=== PATIENT | female | born 1995 | race Caucasian/White ===

== ENCOUNTER 2016-12-04 14:16 | Emergency (ER) | payer OTHER ==
[~2016-12-04 14:16] MED LIST: PROPARACAINE 0.5% OPHTH DROPS 15 ML BTL ONE
[2016-12-04 14:28] VITALS: BP 137/62; PULSE 69; RESP 18; TEMP 98.4
[2016-12-04] MEDS ORDERED: PROPARACAINE 0.5% OPHTH DROPS 15 ML BTL RIGHT EYE SCH (14:30)
--- NOTE | 2016-12-04 14:45 | ED ---
Eye Problem HPI - General Chief complaint: Eye Problems Stated complaint: [facility] chemical splash rt eye Time Seen by Provider: 12/04/16 14:28 Source: patient, RN notes reviewed, old records reviewed Mode of arrival: ambulatory Limitations: no limitations - History of Present Illness Initial comments: This is a 21-year-old female presenting to the emergency department chief complaint of a chemical burn to right eye. 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 She states that she did flush it and felt a little bit better but now is continuing to burn. Patient states that she wears glasses. She does not wear contacts. She states that her vision of the same. She states that she's had no previous problems with her eyes. She reports that her vision is unchanged. Patient states that the burning sensation. She denies any fever or chills, headache, shortness of breath, chest pain, nausea or vomiting. - Related Data Home Medications Medication Instructions Recorded Confirmed No Known Home Medications [No 12/04/16 12/04/16 Known Home Medications] Allergies Allergy/AdvReac Type Severity Reaction Status Date / Time No Known Allergies Allergy Verified 12/04/16 14:26 Review of Systems ROS Statement: Those systems with pertinent positive or pertinent negative responses have been documented in the HPI. ROS Other: All systems not noted in ROS Statement are negative. Past Medical History Past Medical History: No Reported History History of Any Multi-Drug Resistant Organisms: None Reported Past Surgical History: Tonsillectomy Past Psychological History: No Psychological Hx Reported Smoking Status: Never smoker Past Alcohol Use History: None Reported Past Drug Use History: None Reported General Exam - General Exam Comments Initial Comments: Well-appearing 21-year-old female. No distress. Limitations: no limitations General appearance: alert Head exam: Present: atraumatic, normocephalic, normal inspection Eye exam: Present: normal appearance, PERRL, EOMI, conjunctival injection ( Right eye conjunctival injection.), other (PH of the right eye is 7.). Absent: scleral icterus, periorbital swelling ENT exam: Present: normal exam, normal oropharynx, mucous membranes moist Neck exam: Present: normal inspection. Absent: tenderness, meningismus, lymphadenopathy Respiratory exam: Present: normal lung sounds bilaterally. Absent: respiratory distress, wheezes, rales, rhonchi, stridor Cardiovascular Exam: Present: regular rate, normal rhythm, normal heart sounds. Absent: systolic murmur, diastolic murmur, rubs, gallop, clicks GI/Abdominal exam: Present: soft, normal bowel sounds. Absent: distended, tenderness, guarding, rebound, rigid Extremities exam: Present: normal inspection, full ROM, normal capillary refill. Absent: tenderness, pedal edema, joint swelling, calf tenderness Back exam: Present: normal inspection Neurological exam: Present: alert, oriented X3, CN II-XII intact Psychiatric exam: Present: normal affect, normal mood Skin exam: Present: warm, dry, intact, normal color. Absent: rash Course Vital Signs 12/04/16 14:26 Temperature 98.4 F Pulse Rate 69 Respiratory 18 Rate Blood Pressure 137/62 O2 Sat by Pulse 98 Oximetry Medical Decision Making - Medical Decision Making Well-appearing 21-year-old female in no acute distress describes that she has had chemical splash into her right eye. Patient for scene eye exam was performed. Just diffuse uptake no evidence of corneal abrasion. Patient pH of her eye was 7 prior to Cole lens. Patient did receive a Cole lens afterward. Eye was then examined with fluorescein and does show evidence of a small abrasion at 6 oclock position from the Cole lens. Patient will be started on erythromycin eye ointment. Patient given a referral for research environmental engineer. Patient agrees to treatment plan will comply. Return parameters were discussed. Disposition Clinical Impression: Chemical injury to cornea of right eye Disposition: HOME SELF-CARE Condition: Good Instructions: Chemical Eye [place] (ED) Additional Instructions: Patient advised to apply eye ointment every 4 hours to the right eye. Follow- up with research environmental engineer if symptoms continue to persist. Return to the emergency department if any alarming signs or symptoms occur. Referrals: Fabiola Ackerman MD [Primary Care Provider] - 1-2 days Cesar Murrell MD [STAFF PHYSICIAN] - 1-2 days Time of Disposition: 14:43
[2016-12-04] MEDS ORDERED: ERYTHROMYCIN 5 MG/GM OPHTH OINT 3.5 GM TUBE RIGHT EYE SCH (16:00)
== END 2016-12-04 15:15 | disposition home or self-care (01) ==
LOC: EC 14:16
DX: T26.61XA Corrosion of cornea and conjunctival sac, right eye, initial encounter (principal); Y93.89 Activity, other specified; Y92.239 Unspecified place in hospital as the place of occurrence of the external cause
CPT/HCPCS: 99283

== ENCOUNTER 2023-08-27 09:06 | Day surgery (SDC) | payer MEDICAID ==
[~2023-08-27 09:06] MED LIST changes: +LACTATED RINGERS 1,000 ML IV SCH; +LIDOCAINE 1% (10MG/ML) FOR IV START INTRADERMA PRN; +ONDANSETRON 4 MG/2 ML VIAL IVP PRN; -PROPARACAINE 0.5% OPHTH DROPS 15 ML BTL ONE
[2023-08-27 09:58] VITALS: RESP 16; TEMP 98.2
--- NOTE | 2023-08-27 10:01 | P.GSHP ---
History of Present Illness H&P Date: 08/27/23 Chief Complaint: rectal bleeding 28-year-old female here for colonoscopy. Patient has had intermittent rectal bleeding and diarrhea for the last 3 years. No prior endoscopies. Past Medical History Past Medical History: No Reported History Additional Past Medical History / Comment(s): Chronic diarrhea for last 3 yrs. blood with wiping. History of Any Multi-Drug Resistant Organisms: None Reported Past Surgical History: Tonsillectomy Additional Past Surgical History / Comment(s): wisdom teeth removed Past Anesthesia/Blood Transfusion Reactions: No Reported Reaction Smoking Status: Never smoker - Past Family History Mother Family Medical History: Coronary Artery Disease (CAD), Deep Vein Thrombosis (DVT), Hypertension Medications and Allergies Home Medications Medication Instructions Recorded Confirmed Type Etonogestrel/Ethinyl Estradiol 1 each VG Q30D 08/21/23 08/27/23 History [Nuvaring Vaginal Ring] Ibuprofen [Motrin Ib] 200 mg PO DIRECTED PRN 08/21/23 08/21/23 History Allergies Allergy/AdvReac Type Severity Reaction Status Date / Time No Known Allergies Allergy Verified 08/27/23 09:42 Surgical - Exam Vital Signs Temp Pulse Resp BP Pulse Ox 98.2 F 101 H 16 134/87 98 08/27/23 09:56 08/27/23 09:56 08/27/23 09:56 08/27/23 09:56 08/27/23 09:56 Physical exam: General: Well-developed, well-nourished HEENT: Normocephalic, sclerae nonicteric Abdomen: Nontender, nondistended Extremities: No edema Neuro: Alert and oriented Assessment and Plan (1) Rectal bleeding Narrative/Plan: Will proceed with colonoscopy at this time. Current Visit: Yes Status: Acute Code(s): K62.5 - HEMORRHAGE OF ANUS AND RECTUM SNOMED Code(s): 27643941
[2023-08-27] MEDS ORDERED: PROPOFOL 10 MG/ML 20 ML VIAL IV ONE (10:03)
--- NOTE | 2023-08-27 10:18 | P.PCN ---
Date of Procedure: 08/27/23 Procedure(s) Performed: PREOPERATIVE DIAGNOSIS: Rectal bleeding POSTOPERATIVE DIAGNOSIS: Normal exam PROCEDURE: Colonoscopy with random biopsy ANESTHESIA: MAC SURGEON: Kiaden Aguilera M.D. SPECIMENS: Random ileum and colon biopsies ENDOSCOPIC PROCEDURE: The patient was placed on the endoscopy table in the left decubitus position. The Olympus colonoscope was inserted into the anus and passed under direct visualization to the base of the cecum. The appendiceal orifice was visualized. The ileum was inspected. Biopsies were taken. It otherwise appeared normal. From that point the scope was slowly withdrawn inspecting all surfaces carefully. There were no neoplastic inflammatory or polypoid lesions throughout the cecum, ascending, transverse, descending, sigmoid and rectum. There was no visible diverticulosis noted. Random biopsies of the colon took place. Digital rectal examination was normal. The patient was taken to the recovery room in stable condition per anesthesia guidelines. RECOMMENDATIONS: Await biopsy results. Resume diet.
[2023-08-27 10:48] VITALS: BP 106/73; PULSE 80
== END 2023-08-27 11:11 | disposition home or self-care (01) ==
LOC: ORWHC2ENDO 09:06
PROVIDERS: ATTEND Surgery
DX: K62.5 Hemorrhage of anus and rectum (principal)
CPT/HCPCS: 81025; 88305; 45380; J2704

== ENCOUNTER → 2023-10-17 | Outpatient (CLI) | payer MEDICAID ==
--- NOTE | 2023-10-17 10:00 | USB ---
Reason for Exam: Clinical finding. Indicated Problems: Lump or thickening of the right side for 1 Week(s). Patient History: Menarche at age 14. Premenopausal. Last menstrual period: 10/13/2023 Technique: Method: Targeted. Patient Position: LPO. Prior Study Comparison: No prior studies available for comparison. Findings: The upper outer quadrant of the right breast, the area of palpable concern of the right breast, the axilla of the right breast and the retroareolar of the right breast were scanned. A complete US of all four quadrants of the breast the axilla, and retro-areolar region were reviewed. No solid or cystic masses are identified. Dense tissue is present throughout. Particular attention to the palpable site tendon all the clot shows more focal dense tissue. No axillary lymphadenopathy. Overall Assessment: Benign, BI-RAD 2 Management: Screening Mammogram of both breasts at age 41. Unless there is an indication to start sooner. Additional clinical follow-up of the palpable area in the right breast. Ultrasound shows focal dense tissue here. If any enlargement the site can be rescanned. A clinical breast exam by your physician is recommended on an annual basis and results should be correlated with mammographic findings. Patient should continue monthly self breast exams. Results were given to the patient verbally at the time of exam. Electronically signed and approved by: Reema Kaba M.D. Radiologist
== END | disposition home or self-care (01) ==
LOC: RADUSWWP 09:20
PROVIDERS: ATTEND Family Medicine
DX: N63.11 Unspecified lump in the right breast, upper outer quadrant (principal); N64.4 Mastodynia

== ENCOUNTER 2024-12-15 06:05 | Inpatient (IN) | payer MEDICAID, BC ==
[2024-12-15] MEDS ORDERED: miSOPROStoL 200 MCG TAB RECTAL PRN (06:09)
[2024-12-15] MEDS ORDERED: METHYLERGONOVINE 0.2 MG/ML 1 ML AMP IM PRN (06:09)
[2024-12-15] MEDS ORDERED: miSOPROStoL 200 MCG TAB PO PRN (06:09)
[2024-12-15] MEDS ORDERED: TERBUTALINE 1 MG/ML VIAL SQ PRN (06:09)
[2024-12-15] MEDS ORDERED: CARBOPROST TROMETHAMINE 250 MCG/ML 1 ML AMP IM PRN (06:09)
[2024-12-15] MEDS ORDERED: TRANEXAMIC 1,000 MG/100ML-NACL 1,000 MG in EMPTY BAG 1 BAG IV PRN (06:09)
[2024-12-15] MEDS ORDERED: OXYTOCIN 10 UNIT/ML 1 ML VIAL IM PRN (06:09)
[2024-12-15] MEDS ORDERED: LIDOCAINE 0.5% (PF) 5 MG/ML (50 ML SDV) SQ PRN (06:09)
[2024-12-15 06:26] LABS: Glucose,Whole Blood 83 mg/dL (70-110)
[2024-12-15] MEDS: LACTATED RINGERS 1,000 ML IV SCH (06:28)
[2024-12-15] MEDS: OXYTOCIN 30 UNITS/500 ML NS 30 UNIT in SALINE 1 500ML.BAG IV SCH (06:30)
[2024-12-15 06:41] LABS: Basophils # (A) 0.02 10*3/uL (0.00-0.10); Basophils % (A) 0.3 %; Eosinophils # (A) 0.05 10*3/uL (0.04-0.35); Eosinophils % (A) 0.7 %; HCT 33.6 % (37.2-46.3); HGB 11.7 g/dL (12.0-15.0); Lymphocytes # (A) 1.86 10*3/uL (0.90-5.00); Lymphocytes % (A) 27.8 %; MCH 32.7 pg (27.0-32.0); MCHC 34.8 g/dL (32.0-37.0); MCV 93.9 fL (80.0-97.0); Mean Platelet Volume 10.9 fL (9.5-12.2); Neutrophils % (A) 61.5 %; Platelet Count 185 10*3/uL (140-440); RBC 3.58 10*6/uL (4.10-5.20); RDW 13.3 % (11.5-14.5); WBC 6.68 10*3/uL (4.50-10.00)
--- NOTE | 2024-12-15 08:50 | P.HPOB ---
History of Present Illness H&P Date: 12/15/24 Chief Complaint: IUP at 39-3/7 weeks, GDM This is a 29-year-old 1 para 0 at 39-3/7 weeks that presents to labor and delivery for induction of labor secondary to GDM. Patient has been receiving routine care which has been complicated by diagnosis of gestational diabetes, diet-controlled. Patient has good blood sugar control throughout the . Patient notes good movement occasional contractions are appreciated. On blood work this patient is a blood type of O+, rubella status immune, hepatitis B surface engine negative, HIV negative, RPR is nonreactive, grew beta strep cultures negative. Review of Systems Constitutional: Denies chills, Denies fatigue, Denies fever Ears, nose, mouth and throat: Denies headache Cardiovascular: Reports leg edema Respiratory: Denies dyspnea Gastrointestinal: Denies constipation, Denies diarrhea, Denies nausea, Denies vomiting Genitourinary: Reports Past Medical History Past Medical History: No Reported History Additional Past Medical History / Comment(s): Chronic diarrhea for last 3 yrs. blood with wiping. History of Any Multi-Drug Resistant Organisms: None Reported Past Surgical History: Tonsillectomy Additional Past Surgical History / Comment(s): wisdom teeth removed Past Anesthesia/Blood Transfusion Reactions: No Reported Reaction Past Psychological History: No Psychological Hx Reported Smoking Status: Never smoker Past Alcohol Use History: Occasional Past Drug Use History: None Reported - Past Family History Mother Family Medical History: Coronary Artery Disease (CAD), Deep Vein Thrombosis (DVT), Hypertension Medications and Allergies Home Medications Medication Instructions Recorded Confirmed Type Aspirin 12/15/24 History Vit No.179/Iron/Folic 12/15/24 History [ Tablet] Allergies Allergy/AdvReac Type Severity Reaction Status Date / Time No Known Allergies Allergy Verified 12/15/24 06:08 Exam Osteopathic Statement: *. No significant issues noted on an osteopathic structural exam other than those noted in the History and Physical/Consult. Intake and Output 12/14/24 12/15/24 12/15/24 22:59 06:59 14:59 Other: Weight 71.214 kg Targeted physical exam is performed this date General Is a well-nourished well- developed female in no acute distress, breathing is noted to be unlabored, abdomen is noted to be gravid, on cervical exam she is /-2 station, amniotomy was performed and clear fluid was obtained. heart tones are noted to be category 1 and she is ashley every 4 minutes Results Result Diagrams: 12/15/24 06:21 Abnormal Lab Results - Last 24 Hours (Table) 12/15/24 Range/Units 06:21 RBC 3.58 L (4.10-5.20) 10*6/uL Hgb 11.7 L (12.0-15.0) g/dL Hct 33.6 L (37.2-46.3) % MCH 32.7 H (27.0-32.0) pg Immature Gran # 0.05 H (0.00-0.04) 10*3/uL Assessment and Plan (1) Term Current Visit: Yes Status: Acute Code(s): Z34.90 - ENCNTR FOR SUPRVSN OF NORMAL , UNSP, UNSP TRIMESTER SNOMED Code(s): 08657159 (2) GDM (gestational diabetes mellitus), class A1 Current Visit: Yes Status: Acute Code(s): O24.410 - GESTATIONAL DIABETES MELLITUS IN , DIET CONTROLLED SNOMED Code(s): 47787725 Plan: Admit to labor and delivery Analgesia discussed offered Nubain's, nitrous, epidural Pitocin per hospital protocol
[2024-12-15] MEDS: AMPICILLIN 2,000 MG in SODIUM CHLORIDE 0.9% 100 ML IVPB STA (21:38)
[2024-12-16] MEDS: AMPICILLIN 1,000 MG in SODIUM CHLORIDE 0.9% 50 ML IVPB SCH (02:01)
[2024-12-16] MEDS ORDERED: METHYLERGONOVINE 0.2 MG/ML 1 ML AMP IM PRN (10:56)
[2024-12-16] MEDS ORDERED: OXYTOCIN 10 UNIT/ML 1 ML VIAL IM PRN (10:56)
[2024-12-16] MEDS ORDERED: TRANEXAMIC 1,000 MG/100ML-NACL 1,000 MG in EMPTY BAG 1 BAG IV PRN (10:56)
[2024-12-16] MEDS ORDERED: CARBOPROST TROMETHAMINE 250 MCG/ML 1 ML AMP IM PRN (10:56)
[2024-12-16] MEDS ORDERED: miSOPROStoL 200 MCG TAB PO PRN (10:56)
[2024-12-16] MEDS: ceFAZolin 2 GM in DEXTROSE 5% IN WATER 50 ML IVPB ONE (11:52)
[2024-12-16] MEDS: CITRIC ACID-SODIUM CITRATE 15 ML CUP PO ONE (11:52)
[2024-12-16 12:39] LABS: Glucose,Whole Blood 75 mg/dL (70-110)
[2024-12-16] MEDS ORDERED: HYDROmorphone 0.5 MG/0.5 ML SYRINGE IVP PRN (13:04)
[2024-12-16] MEDS ORDERED: NALOXONE 0.4 MG/ML 1 ML VIAL IV PRN (13:04)
[2024-12-16] MEDS ORDERED: ONDANSETRON 4 MG/2 ML VIAL IVP PRN (13:04)
[2024-12-16] MEDS ORDERED: KETOROLAC 15 MG/ML 1 ML VIAL IVP PRN (13:04)
[2024-12-16] MEDS ORDERED: diphenhydrAMINE 50 MG/ML 1 ML VIAL IVP PRN ×3 (13:04→13:21)
[2024-12-16] MEDS ORDERED: diphenhydrAMINE 50 MG CAP PO PRN (13:21)
[2024-12-16] MEDS ORDERED: METOCLOPRAMIDE 5 MG/ML 2 ML VIAL IVP PRN (13:21)
[2024-12-16] MEDS ORDERED: ZOLPIDEM 5 MG TAB PO PRN (13:21)
[2024-12-16] MEDS ORDERED: diphenhydrAMINE 25 MG CAP PO PRN (13:21)
[2024-12-16] MEDS ORDERED: SIMETHICONE 80 MG CHEWABLE PO PRN (13:21)
--- NOTE | 2024-12-16 13:28 | P.OP ---
Date of Procedure: 12/16/24 Preoperative Diagnosis: IUP at 39-4/7 weeks, GDM A1, failed induction with no dilation over the last 24 hours Postoperative Diagnosis: Same Procedure(s) Performed: Primary low-transverse section Anesthesia: spinal Surgeon: Carolyn Paez Estimated Blood Loss (ml): 760 IV fluids (ml): 800 Urine output (ml): 400 (Clear yellow) Pathology: none sent Condition: stable Disposition: observation Indications for Procedure: 29-year-old 1 para 0 presented to labor and delivery for induction of labor on 12/03 given diagnosis of gestational diabetes A1. Patient was admitted and noted to be 1 cm. Patient had Pitocin started for induction of labor per hospital protocol. Patient underwent amniotomy and clear fluid was obtained. Patient progressed through the day eventually Pitocin increasing to 26 milliunits, patient was not uncomfortable during this process. Around 10:00 Pitocin was turned off and Pitocin rest was initiated. Pitocin was restarted around midnight and this morning patient remains 3 cm. Patient was counseled on lack of progress over the last 24 hours and specifically the lack of descent of the head. Patient stated understanding and together we decided to proceed with primary low-transverse section. All questions were answered and informed consent was obtained. Operative Findings: Viable female infant delivered at 1258, weight of 6 pounds 10 ounces Apgars of 9 and 9 at 1 and 5 minutes respectively. Description of Procedure: The patient was prepped and draped in the usual fashion after spinal anesthesia was administered by the anesthesia department. A Pfannenstiel incision was made and extended of the abdominal cavity without difficulty. The bladder peritoneum was elevated and incised and reflected distally. A 2 cm incision was made in the transverse plane of the lower uterine segment to enter the uterus at which time clear fluid was noted. The incision was extended in both directions using the bandage scissors. The head was encountered within the field and delivered up and through the incision where the nose and mouth were thoroughly suctioned. Remainder of the was delivered onto the surgical field where the cord was doubly clamped, cut, and the was passed for resuscitative measures with weight and Apgars as noted above. A segment of cord was then doubly clamped, cut, and set aside should cord gases become necessary. The placenta was delivered manually, intact, and was grossly normal with a grossly normal three-vessel cord. The uterus was exteriorized and the interior cavity of the uterus swept of any remaining placental and membranous fragments with a laparotomy sponge. The margins of the incision were grasped with Philippe clamps and the incision closed in 2 layers. First layer was a running locking layer of 0 Vicryl from margin to margin followed by a second layer of imbricating 0 Vicryl from margin to margin. Any small points of bleeding were then made hemostatic with the Bovie. Once hemostasis was achieved, the posterior cul-de-sac was suctioned with a guard and the uterine and ovarian findings are as noted above. The uterus was replaced within the abdominal cavity and the gutters swept of any remaining blood fluid or clot. The incision was again reexamined and hemostasis was noted to be excellent. Any small point of bleeding were made hemostatic with the Bovie. Once hemostasis was achieved the parietal peritoneum was loosely reapproximated. The layer of muscles were examined and made hemostatic with the Bovie. Attention was then turned to the fascia which was closed with 0 Vicryl in a running fashion from 1 lateral edge to the other. The subcutaneous tissues were irrigated, made hemostatic with the Bovie, and reapproximated with a running stitch of 3-0 Vicryl. The skin was reapproximated with 4-0 Vicryl. Estimated blood loss for the case was approximately 760 mL. All sponge instrument and needle counts are correct. Th ere were no complications. The patient tolerated the procedure well and proceeded to the recovery room in stable condition. Both mother and infant are resting comfortably in recovery.
[2024-12-16] MEDS: ACETAMINOPHEN IV (For NPO) 1,000 MG in EMPTY BAG 1 BAG IVPB ONE (14:37)
[2024-12-16] MEDS: LACTATED RINGERS 1,000 ML IV SCH (14:38)
[2024-12-16] MEDS ORDERED: KETOROLAC 15 MG/ML 1 ML VIAL IVP SCH (16:00)
[2024-12-16] MEDS: IBUPROFEN IV 800 MG in SODIUM CHLORIDE 0.9% 250 ML IV ONE (21:01)
[2024-12-16] MEDS: SENNOSIDES-DOCUSATE SODIUM 1 EACH TAB PO SCH (21:01)
[2024-12-17] MEDS: ACETAMINOPHEN TAB 500 MG TAB PO SCH (00:06)
[2024-12-17] MEDS: IBUPROFEN 800 MG TAB PO SCH (05:35)
--- NOTE | 2024-12-17 06:38 | P.PN ---
Progress Note - Text Progress Note Date: 12/17/24 Patient was seen and examined side. Received intrathecal morphine 300 mcg for postop pain control as per surgeon request. Today postop day 1 , status post C- section. Today complaining her pain levels 2-3 out of 10 in severity. Able to ambulate without any difficulty. Denied any weakness. Mild itching. Physical exam: Vitals : stable vitals, afebrile Assessment and plan: postop day 1 -status post Continue oral pain medications as needed as per primary care. Please contact anesthesia as needed.
[2024-12-17 07:16] LABS: Basophils # (A) 0.03 10*3/uL (0.00-0.10); Basophils % (A) 0.3 %; Eosinophils # (A) 0.03 10*3/uL (0.04-0.35); Eosinophils % (A) 0.3 %; HCT 29.1 % (37.2-46.3); Lymphocytes # (A) 2.12 10*3/uL (0.90-5.00); Lymphocytes % (A) 23.3 %; MCH 32.1 pg (27.0-32.0); MCV 94.5 fL (80.0-97.0); Mean Platelet Volume 10.7 fL (9.5-12.2); Monocytes # (A) 0.98 10*3/uL (0.20-1.00); Monocytes % (A) 10.8 %; Neutrophils # (A) 5.88 10*3/uL (1.80-7.70); Neutrophils % (A) 64.9 %; Platelet Count 177 10*3/uL (140-440); RBC 3.08 10*6/uL (4.10-5.20); RDW 13.5 % (11.5-14.5); WBC 9.08 10*3/uL (4.50-10.00)
[2024-12-17 07:29] LABS: HGB 9.9 g/dL (12.0-15.0)
--- NOTE | 2024-12-17 09:53 | P.PNOBGPC ---
Subjective - Subjective Principal diagnosis: Postop day 1 Interval history: Patient is doing well postoperatively. She is ambulating and voiding without difficulty. She is tolerating a regular diet without nausea or vomiting. Her lochia is minimal. She is breast-feeding. Patient reports: Reports appetite normal, Reports voiding normally, Reports pain well controlled, Reports ambulating normally [place]: doing well Objective - Vital Signs Latest vital signs: Vital Signs Temp Pulse Resp BP Pulse Ox 12/17/24 07:54 98.6 F 65 16 105/67 12/17/24 00:48 97.9 F 78 18 127/66 12/16/24 15:25 98.0 F 85 16 119/74 97 12/16/24 15:10 73 16 110/64 98 12/16/24 14:55 72 16 110/64 96 12/16/24 14:40 73 16 116/61 97 12/16/24 14:25 73 16 111/64 98 12/16/24 14:10 71 16 108/64 95 12/16/24 13:55 69 16 106/60 97 12/16/24 13:40 78 16 108/67 97 12/16/24 13:25 98.0 F 90 16 108/67 97 Intake and Output 12/16/24 12/17/24 12/17/24 22:59 06:59 14:59 Intake Total 400 Output Total 523 850 Balance -123 -850 Intake: Oral 400 Output: Urine 450 850 Uretheral (Alberto) 450 Output, Quantitative 73 Blood Loss Other: # Voids 2 1 - Exam Extremities: Present: normal, edema Abdomen: Present: normal appearance, soft Incision: Present: normal, dry, intact Uterus: Present: normal, firm - Labs Labs: Abnormal Lab Results - Last 24 Hours (Table) 12/17/24 Range/Units 06:39 RBC 3.08 L (4.10-5.20) 10*6/uL Hgb 9.9 L D (12.0-15.0) g/dL Hct 29.1 L (37.2-46.3) % MCH 32.1 H (27.0-32.0) pg Eosinophils # 0.03 L (0.04-0.35) 10*3/uL Assessment and Plan (1) Term Current Visit: Yes Status: Acute Code(s): Z34.90 - ENCNTR FOR SUPRVSN OF NORMAL , UNSP, UNSP TRIMESTER SNOMED Code(s): 80224843 (2) GDM (gestational diabetes mellitus), class A1 Current Visit: Yes Status: Acute Code(s): O24.410 - GESTATIONAL DIABETES MELLITUS IN , DIET CONTROLLED SNOMED Code(s): 19889481 (3) Failed induction Narrative/Plan: No cervical change after 24 hours. Current Visit: Yes Status: Acute Code(s): O61.9 - FAILED INDUCTION OF LABOR, UNSPECIFIED SNOMED Code(s): 68045836 (4) Status post section Current Visit: Yes Status: Acute Code(s): Z98.891 - HISTORY OF UTERINE SCAR FROM PREVIOUS SURGERY SNOMED Code(s): 988939875 Plan: Patient is doing well postoperatively. Plan to continue routine postoperative care, anticipate discharge home tomorrow
[2024-12-17] MEDS: PRENATAL VIT-IRON-FOLIC ACID 1 EACH TABLET PO SCH (10:45)
[2024-12-17] MEDS ORDERED: IBUPROFEN 800 MG TAB PO SCH (16:00)
[2024-12-18 08:00] VITALS: BP 126/80; PULSE 72; RESP 18; TEMP 98
--- NOTE | 2024-12-18 09:39 | P.DS ---
Providers Date of admission: 12/15/24 06:05 Expected date of discharge: 12/18/24 Attending physician: Carolyn Paez Primary care physician: Stated None - Discharge Diagnosis(es) (1) Term Current Visit: Yes Status: Acute (2) GDM (gestational diabetes mellitus), class A1 Current Visit: Yes Status: Acute (3) Failed induction Current Visit: Yes Status: Acute (4) Status post section Current Visit: Yes Status: Acute Hospital Course: This is a 29-year-old 1 now para 1 that presented to labor and delivery on 12/15 for induction of labor secondary to gestational diabetes. Patient had been receiving routine care and blood sugars have been well-controlled. Patient was admitted and Pitocin induction of labor was begun. Patient underwent amniotomy clear fluid was obtained. Patient made very minimal progress over the next 24 hours. After 24 hours with no cervical change patient was counseled on exam. Patient and agreed to proceed with primary low- transverse section secondary to failed induction. Patient was taken back to the operating room where a viable female was delivered at 1258, weight of 6 pounds 10 ounces, Apgars of 9 and 9 at 1 and 5 minutes respectively. For full details on the please see the dictated operative report Patient's postoperative course has been uneventful. On this postoperative day #2 she is ambulating and voiding without difficulty. She is tolerating a regular diet without nausea or vomiting. States her pain is well-controlled. She is ready for discharge home. Patient Condition at Discharge: Good Plan - Discharge Summary New Discharge Prescriptions: No Action Aspirin Vit No.179/Iron/Folic [ Tablet] Discharge Medication List Aspirin 12/15/24 [History] Vit No.179/Iron/Folic [ Tablet] 12/15/24 [History] Follow up Appointment(s)/Referral(s): Carolyn Paez DO [Doctor of Osteopathic Medicine] - 01/26/25 1:15 pm (2 week C/S follow up December 30 at 11:30) Patient Instructions/Handouts: (DC), (GEN) Activity/Diet/Wound Care/Special Instructions: No tub baths or intercourse until 6 weeks . [id number] ibuprofen 600 mg or 3 tablets every 6 hours as needed for pain. Incision check is scheduled for 2 weeks postoperatively. Incision care is reviewed. Should she have any concerns prior to her follow-up appointment she is urged to call the office and be seen prior Discharge Disposition: HOME SELF-CARE
== END 2024-12-18 10:15 | disposition home or self-care (01) | DRG 788 ==
LOC: 4FBP 06:05
PROVIDERS: ADMIT Obstetrics & Gynecology Obstetrics; ATTEND Obstetrics & Gynecology Obstetrics
PROC: 10907ZC Drainage of Amniotic Fluid, Therapeutic from Products of Conception, Via Natural or Artificial Opening (ICD-10-PCS; 2024-12-16)
PROC: 3E033VJ Introduction of Other Hormone into Peripheral Vein, Percutaneous Approach (ICD-10-PCS; 2024-12-16)
PROC: 10D00Z1 Extraction of Products of Conception, Low, Open Approach (ICD-10-PCS; principal; 2024-12-16 12:00)
DX: O24.420 Gestational diabetes mellitus in childbirth, diet controlled (principal); K52.9 Noninfective gastroenteritis and colitis, unspecified; O61.0 Failed medical induction of labor; O26.893 Other specified pregnancy related conditions, third trimester; O99.62 Diseases of the digestive system complicating childbirth; Z37.0 Single live birth; Z3A.39 39 weeks gestation of pregnancy; Z82.49 Family history of ischemic heart disease and other diseases of the circulatory system; Z67.40 Type O blood, Rh positive
CPT/HCPCS: 85025; 86850; 86900; 86901